=== PATIENT | male | born 1990 | race African-American/Black ===

== ENCOUNTER 2017-04-23 19:47 | Emergency (ER) | payer SELFPAY ==
[2017-04-24] MEDS ORDERED: CEPHALEXIN 500 MG CAPSULE PO ONE (00:27)
--- NOTE | 2017-04-24 00:31 | ER Document Report ---
ED General - General Chief Complaint: Knee Pain Stated Complaint: KNEE PAIN Time Seen by Provider: 04/24/17 00:14 Notes: Patient is a 26-year-old male who presents to the ER because of right knee pain. 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 3 days ago he was on his knees almost entire shift. He says since then he has had swelling and pain to his right knee. He stopped to bear weight. He is able flex and extend the knee without difficulty. Several urgent care and they told him to come to the ER to have his knee drained. No fevers. No other complaints at this time. TRAVEL OUTSIDE OF THE [place] IN LAST 30 DAYS: No Past Medical History - Social History Smoking Status: Never Smoker Frequency of alcohol use: None Drug Abuse: None Family History: Reviewed & Not Pertinent Patient has suicidal ideation: No Patient has homicidal ideation: No Renal/ Medical History: Denies: Hx Peritoneal Dialysis Surgical Hx: Negative Review of Systems - Review of Systems Notes: My Normal Review Basic REVIEW OF SYSTEMS: CONSTITUTIONAL : Denies fever, chills, or sweats. Denies recent illness. MUSCULOSKELETAL: Right knee swelling and pain. SKIN: Denies rash or skin lesions. HEMATOLOGIC : Denies easy bruising or bleeding. NEUROLOGICAL: Denies altered mental status or loss of consciousness. Denies headache. Denies weakness or paralysis or loss of use of either side. Denies problems with gait or speech. Denies sensory or motor loss. ALL OTHER SYSTEMS REVIEWED AND NEGATIVE. Physical Exam - Vital signs Vitals: Temp Pulse Resp BP Pulse Ox 99.1 F 89 16 128/72 H 100 04/23/17 20:50 04/23/17 20:50 04/23/17 20:50 04/23/17 20:50 04/23/17 20:50 - Notes Notes: General Appearance: Well nourished, alert, cooperative, no acute distress, no obvious discomfort. Vitals: reviewed, See vital signs table. Extremities: strength 5/5 in all extremities, good pulses in all extremities, patient has some slight swelling to the right knee. He has some slight redness just above the patella. Patient has full range of motion of the knee. He has full flexion-extension without difficulty. He is able stand and walk and bear weight. He does not have significant pain with moving his knee. Findings are consistent with a prepatellar bursitis., no edema. Skin: warm, dry, appropriate color, no rash Neuro: speech clear, oriented x 3, normal affect, responds appropriately to questions. Course - Vital Signs Vital signs: Temp Pulse Resp BP Pulse Ox 99.1 F 88 20 138/80 H 98 04/23/17 20:50 04/24/17 00:41 04/24/17 00:41 04/24/17 00:41 04/24/17 00:41 - Transfer of Care Notes: 04/24/17 06:16 Patient's findings are consistent with prepatellar bursitis. Informed patient that I do not think draining the knee would be appropriate at this time. I informed him we would only put a needle his knee if I felt that he had a joint capsule infection. The patient is full range of motion of the knee without significant pain and therefore a septic knee is highly unlikely. Patient's history and findings were consistent with a prepatellar bursitis. He does have a little bit of redness and warmth just superior to the patella and therefore will place him on Keflex as he may have a slight infection with bursitis. I suspect that most of this is just inflammation from the trauma of being on his knees all day at work 3 days ago. Informed him not to kneel or to do squats. Informed him to place ice packs of the knee take Motrin for the pain. I referred him to orthopedics. I encouraged her to return to ER if he has any stiffness or difficulty moving his knee, increasing pain, spreading redness, or fevers. Patient agrees with plan will be discharged home. Dictation of this chart was performed using voice recognition software; therefore, there may be some unintended grammatical errors. Discharge - Discharge Clinical Impression: Prepatellar bursitis Qualifiers: Laterality: right Qualified Code(s): M70.41 - Prepatellar bursitis, right knee Condition: Good Disposition: HOME, SELF-CARE Additional Instructions: Please take the antibiotics as prescribed. Please do not do any kneeling or squatting. Apply ice packs to the knee for 30 minutes at a time when resting. Please return to the ER if you have difficulty moving the knee, difficulty bearing weight, fevers, or if you feel that your knee is worsening. Please follow up with the orthopedist, Dr. Andres, for reevaluation. Prescriptions: Cephalexin Monohydrate [Keflex 500 mg Capsule] 500 mg PO QID #28 capsule Ibuprofen 800 mg PO TID #30 tablet Forms: Return to Work Referrals: MARINA ANDRES MD [ACTIVE STAFF] - Follow up in 3-5 days
[2017-04-24 00:41] VITALS: BP 138/80
== END 2017-04-24 00:41 | disposition home or self-care (01) ==
LOC: ER 19:47
DX: M70.41 Prepatellar bursitis, right knee (principal); L53.9 Erythematous condition, unspecified
CPT/HCPCS: 99283

== ENCOUNTER 2018-09-10 14:31 | Emergency (ER) | payer SELFPAY ==
[2018-09-10 14:56] VITALS: BP 129/74
[2018-09-10] MEDS ORDERED: LIDOCAINE 1% INJ-PF (10 MG/ML) 30 ML SDV INJ ONE (16:21)
--- NOTE | 2018-09-10 16:53 | ER Document Report ---
ED Hand/Wrist Injury - General Chief Complaint: Laceration Stated Complaint: RIGHT HAND LACERATION Time Seen by Provider: 09/10/18 16:02 Mode of Arrival: Ambulatory Information source: Patient Notes: 28-year-old male presents to ED for laceration to the right 2nd finger on a piece of sheet metal about an hour before arrival. Patient is alert and oriented respirations regular and unlabored speaking in full sentences walking with a even steady gait. Bleeding is controlled. Band-Aid was intact. Patient states his last tetanus shot was about a year ago. TRAVEL OUTSIDE OF THE [place] IN LAST 30 DAYS: No - HPI Injury to: Ring finger Onset: This afternoon Where: Outdoors, Work Timing: Still present Quality of pain: Sharp Severity: Mild Pain Level: 1 Context: Laceration - Related Data Allergies/Adverse Reactions: No Known Allergies Allergy (Unverified 09/10/18 14:37) Past Medical History - General Information source: Patient - Social History Smoking Status: Never Smoker Cigarette use (# per day): No Chew tobacco use (# tins/day): No Smoking Education Provided: No Frequency of alcohol use: Occasional Drug Abuse: None Occupation: Heating and air Family History: Reviewed & Not Pertinent Patient has suicidal ideation: No Patient has homicidal ideation: No - Past Medical History Cardiac Medical History: Reports: None Pulmonary Medical History: Reports: None EENT Medical History: Reports: None Neurological Medical History: Reports: None Endocrine Medical History: Reports: None Renal/ Medical History: Reports: None Malignancy Medical History: Reports None GI Medical History: Reports: None Musculoskeletal Medical History: Reports None Skin Medical History: Reports Hx Cellulitis Psychiatric Medical History: Reports: None Traumatic Medical History: Reports: None Infectious Medical History: Reports: None Surgical Hx: Negative Past Surgical History: Reports: None - Immunizations Immunizations up to date: Yes Hx Diphtheria, Pertussis, Tetanus Vaccination: Yes - 2017 Review of Systems - Review of Systems Constitutional: No symptoms reported EENT: No symptoms reported Cardiovascular: No symptoms reported Respiratory: No symptoms reported Gastrointestinal: No symptoms reported Genitourinary: No symptoms reported Male Genitourinary: No symptoms reported Musculoskeletal: No symptoms reported Skin: Other - Laceration right middle finger tip Hematologic/Lymphatic: No symptoms reported Neurological/Psychological: No symptoms reported Physical Exam - Vital signs Vitals: Temp Pulse Resp BP Pulse Ox 98.8 F 65 16 129/74 H 97 09/10/18 14:55 09/10/18 14:55 09/10/18 14:55 09/10/18 14:55 09/10/18 14:55 Interpretation: Normal - General General appearance: Appears well, Alert - HEENT Head: Normocephalic, Atraumatic Eyes: Normal Pupils: PERRL - Respiratory Respiratory status: No respiratory distress Chest status: Nontender Breath sounds: Normal Chest palpation: Normal - Cardiovascular Rhythm: Regular Heart sounds: Normal auscultation Murmur: No - Abdominal Inspection: Normal Distension: No distension Bowel sounds: Normal Tenderness: Nontender Organomegaly: No organomegaly - Back Back: Normal, Nontender - Extremities General upper extremity: Normal inspection, Nontender, Normal color, Normal ROM , Normal temperature General lower extremity: Normal inspection, Nontender, Normal color, Normal ROM , Normal temperature, Normal weight bearing. No: Luis Daniel's sign Hand: Laceration, No evidence of human bite, No evidence of FB - Second finger right hand. No: Nail injury, Swelling - Neurological Neuro grossly intact: Yes Cognition: Normal Orientation: AAOx4 Jhonny Coma Scale Eye Opening: Spontaneous Jhonny Coma Scale Verbal: Oriented Garrison Coma Scale Motor: Obeys Commands Jhonny Coma Scale Total: 15 Speech: Normal Motor strength normal: LUE, RUE, LLE, RLE Sensory: Normal - Psychological Associated symptoms: Normal affect, Normal mood - Skin Skin Temperature: Warm Skin Moisture: Dry Skin Color: Normal Skin irregularity: Laceration - Laceration to the end of the second right finger Location of irregularity: Extremities Course - Vital Signs Vital signs: Temp Pulse Resp BP Pulse Ox 98.8 F 65 16 129/74 H 97 09/10/18 14:55 09/10/18 14:55 09/10/18 14:55 09/10/18 14:55 09/10/18 14:55 Procedures - Laceration/Wound Repair Right Finger 2nd digit Time completed: 17:41 Wound length (cm): 2.5 Wound's Depth, Shape: Superficial, Linear Laceration pre-procedure: Sterile PPE donned, Sterile drapes applied, Shur- Clens applied Anesthetic type: 1% Lidocaine Volume Anesthetic (mLs): 3 Wound explored: Clean Irrigated w/ Saline (mLs): 200 Wound Debrided: Minimal Wound Repaired With: Sutures Suture Size/Type: 5:0, Ethilon Number of Sutures: 6 Post-procedure wound care: Sterile dressing applied Complications: No Discharge - Discharge Clinical Impression: laceration to right 2nd finger Condition: Stable Disposition: HOME, SELF-CARE Instructions: Family Physicians / Practices Additional Instructions: Hand Laceration A laceration on the hand can present special problems. It may be difficult to keep the wound dry. Motion of the fingers can disturb the healing edges. Your work may involve exposure to damaging chemicals or water. Keep the wound clean and dry. If you can't keep the cut dry, undisturbed, and free of chemical exposure, please discuss this with the doctor. If any water or chemical gets onto the dressing, remove it, blot the wound dry, then apply a fresh bandage. Dressings should be changed every day. If you feel the stitches pulling as you move the hand, a splint or other form of protection is needed. If any signs of infection occur (swelling, redness, increasing tenderness, red streaks, tender lumps in the armpit, or fever), see the doctor immediately. SOAP CLEANSING: Gently wash the wound daily using a mild soap (like Ivory, Phisoderm, Neutrogena). Use warm water, rubbing gently until all debris, ooze, and crusting have been washed from the wound. Allow to dry briefly (about 10 minutes) after cleaning. Repeat this cleansing at least three times a day for the first two days and then once or twice a day. ANTIBIOTIC OINTMENT PROTECTION: Your wounds are such that dressing them is not practical or optional. After cleansing, you should apply a thin coating of antibiotic ointment ( Bacitracin, not Neosporin) to the wounds at least three times daily. This lessens infection risk, and may decrease the amount of scarring. Use a q-tip or dull butter knife, not your finger, to apply this ointment. Any debris or ooze which builds up in the ointment should be gently rubbed off with a sterile gauze pad. Harder crusting may need to be gently scrubbed off with a clean wash cloth with soap and warm water, perhaps applying a warm, wet wash cloth to the wound for ten minutes first. Development of redness, severe itching, or blistering may mean allergy to the ointment. See the doctor. Cephalexin The antibiotic you've been prescribed is a member of the cephalosporin class. This type of antibiotic covers a wide variety of infections, including those of the skin, lungs, and urinary tract. It's useful for staph infections. This antibiotic is slightly similar to the penicillin family. In rare cases , a person who is allergic to penicillin will also be allergic to this medication. If you have had a severe allergic reaction to penicillin, and have not taken this antibiotic since that time, notify your doctor. Antibiotics which cover many germs ("broad spectrum" antibiotics) are more likely to cause diarrhea or "yeast" infections. Women prone to vaginal yeast problems may suffer an attack after taking this antibiotic. In infants, oral thrush (white spots "stuck" on the cheek) or yeast diaper rash may result. See your doctor if these problems occur. Call at once if you develop itching, hives , shortness of breath, or lightheadedness. FOLLOW-UP CARE: Please return in __3___ days for an infection check and dressing change. Your sutures should be removed in __10___ days. To facilitate a timely removal of your sutures, you may return to the Emergency Department at [facility]. You do not need to call for an appointment, but the best time to come in for suture removal is early in the morning. If you have been referred to another physician for follow-up care, call that physicians office for an appointment as you were instructed. If you experience a significant change in your laceration, or if you are concerned there may be an infection (swelling, redness, drainage, increasing tenderness, red streaks, tender lumps in the armpit or groin above the laceration, or fever) , return to the Emergency Department immediately re-evaluation. Prescriptions: Cephalexin Monohydrate [Keflex 500 mg Capsule] 500 mg PO Q6H 5 Days capsule Forms: Elevated Blood Pressure, Special Work Note, Return to Work
[2018-09-10] MEDS ORDERED: CEPHALEXIN 500 MG CAPSULE PO ONE (17:37)
== END 2018-09-10 17:55 | disposition home or self-care (01) ==
LOC: ER 14:31
DX: S61.210A Laceration without foreign body of right index finger without damage to nail, initial encounter (principal); W45.8XXA Other foreign body or object entering through skin, initial encounter; Y99.0 Civilian activity done for income or pay
CPT/HCPCS: 99282; 12001; J3490